=== PATIENT | female | born 1985 | race Caucasian/White ===

== ENCOUNTER 2022-07-02 20:12 | Emergency (ER) | payer MEDICAID ==
[~2022-07-02] VITALS: Ht 172.7 cm; Wt 78.0 kg
[2022-07-02 20:17] VITALS: BP 128/82
[2022-07-02] MEDS ORDERED: ACETAMINOPHEN 325MG TABLET PO ONE (20:45)
== END 2022-07-03 01:58 | disposition home or self-care (01) ==
LOC: ER 20:12
DX: S09.90XA Unspecified injury of head, initial encounter (principal); Y08.89XA Assault by other specified means, initial encounter; Y93.89 Activity, other specified; Y92.89 Other specified places as the place of occurrence of the external cause; Y99.8 Other external cause status; F41.9 Anxiety disorder, unspecified; F10.229 Alcohol dependence with intoxication, unspecified; Y90.0 Blood alcohol level of less than 20 mg/100 ml
CPT/HCPCS: 99284